=== PATIENT | female | born 1990 | race Hispanic/Latino ===

== ENCOUNTER 2025-06-10 00:47 | Emergency (ER) | payer BC ==
[~2025-06-10] VITALS: Ht 149.9 cm; Wt 65.8 kg
[2025-06-10 01:01] LABS: IMMATURE GRANULOCYTE ABSOLUTE 0.08 K/uL (0-1); NUCLEATED RED BLOOD CELLS 0.0 % (0.0-0.19); PLATELET COUNT (AUTO) 340 K/uL (130-400); RED BLOOD CELL COUNT(AUTO) 3.53 MIL/uL (4.00-5.50); RED CELL DISTRIBUTION WIDTH 13.5 % (11.0-15.5); WHITE BLOOD COUNT (AUTO) 8.1 K/uL (4.8-10.8)
[2025-06-10 01:08] LABS: CREATININE 0.7 mg/dL (0.5-1.0); GLOMERULAR FILTR. RATE CALC 116.0 mL/min (>90); GLUCOSE,RANDOM 101.0 mg/dL (70-105); SODIUM SERUM 134.0 mmol/L (136-145); UREA NITROGEN, BLOOD 13.0 mg/dL (7-18)
[2025-06-10] MEDS: FAMOTIDINE 20MG VIAL IV ONE (01:44)
[2025-06-10] MEDS: 0.9%NACL 1000ML 1,000 ML IV ONE (01:44)
--- NOTE | 2025-06-10 01:53 | HMCIMG ---
EXAM: US Obstetrical, Complete > 14 weeks CLINICAL HISTORY: HEART TONES TECHNIQUE: Transabdominal imaging of the maternal pelvis and a > 14 week gestation with image documentation. COMPARISON: None. FINDINGS: FETUS: There is a single living intrauterine gestation. POSITION: Breech presentation. Longitudinal lie. HEART RATE: The heart rate is 149 bpm. ANATOMIC SURVEY: The visualized anatomy is unremarkable. PLACENTA: The placenta is fundal right lateral. Grade 1 maturity of the placenta.. No demonstrated evidence of previa or abruption. AMNIOTIC FLUID: Within normal limits. The single largest pocket measures up to 4.2 cm. CERVIX: Severe cervical incompetence with possibly bulging membranes and a 2.6 x 1.1 cm fluid within the cervix. IMPRESSION: Single live intrauterine gestation. Severe cervical incompetence with possibly bulging membranes and a 2.6 x 1.1 cm fluid within the cervix. /[place]
--- NOTE | 2025-06-10 02:13 | ERN ---
ED Note History of Present Illness Stated Complaint: 24 WEEKS OB, VAGINAL BLEEDING Chief Complaint: Vaginal Bleeding Time Seen by MD: 00:50 Dictation: This is a 34-year-old female who presented to the emergency room with her complaining of vaginal bleeding. Patient is 24 weeks and apparently from [place] however locally came to visit family for the holidays. She stated that she had sinus symptoms and cough and she started having coughing spell after which she developed vaginal bleeding. No abdominal pain or back pain. No nausea vomitings diarrhea hematemesis or melena. No dysuria hematuria. She had a miscarriage in November of 2024 at which time she was also noted to have a cervical polyp. No fever chills or rigors. Temperature 98.2 pulse 101 respirations 18 blood pressure 139/88 with a pulse oximetry of 98% on room air Patient has good and care in [place] Allergies: Coded Allergies: No Known Drug Allergies (Unverified Allergy, Unknown, 06/10/25) Past Medical History Past Medical History: No Pertinent History, Other Additional Past Medical Hx: ENDOMETRIOSIS Surgical History: Family History: Negative Social History: Negative LMP: Dec 21, 2024 : 4 Para: 1 Aborts: 2 RN Note Reviewed/Agreed w/PFSH: Yes Review of System Dictation Constitutional: Negative for fever,chills, and weight loss Eyes: Negative for injury, pain,redness, and discharge ENT: Negative for injury,pain or swelling Cardiovascular: Negative for chest pain, palpitations, and edema Respiratory: Negative for shortness of breath, cough, and wheezing, Abdomen/GI: Negative for abdominal pain, nausea, vomiting, diarrhea, and constipation Back: Negative for injury and pain : Negative for injury, positive for vaginal bleeding positive for 24 weeks MS/Extremity: Negative for injury and deformity Skin: Negative for rash, and discoloration Neuro: Negative for headache, weakness, numbness, tingling, and seizure Psych: Negative for suicide ideation, homicidal ideation, and hallucinations Initial Vital Sign VS Vital Signs Date Time Temp Pulse Resp B/P (MAP) Pulse Ox O2 Delivery O2 Flow Rate FiO2 06/10/25 00:49 98.2 101 18 139/88 98 0 06/10/25 02:25 Room Air* 21 Physical Exam Dictation General: awake, alert, NAD appears generally anxious Head/Face: Normocephalic, atraumatic Eyes: PERRL, EOMI, vision at baseline ENT: oral cavity clear, TMs clear, no signs of infection Neck: Trachea midline, supple, no nuchal rigidity Cardiovascular: RRR, normal S1/S2, No MRGs, no JVD Respiratory: CTAB, no respiratory distress, No rales or wheezes Abdomen: Soft, non-tender, non-distended, normal bowel sounds, no guarding or rebound. Gravid uterus Skin: Warm, dry, normal turgor, no rash MS/Extremity: Pulses equal, no cyanosis, neurovascular intact, FROM Neuro: COAx4, GCS 15, strength 5/5, CN 2-12 intact, normal cerebellar exam, normal gait, Psych: Normal behavior, mood, and affect normal -mild amount of vaginal bleeding with clots Extremities-trace edema without any palpable cords, Homans sign is negative Results (Laboratory/Radiology) Laboratory/Radiology Laboratory Tests Test 06/10/25 00:53 06/10/25 02:22 White Blood Count 8.1 K/uL (4.8-10.8) Red Blood Count 3.53 MIL/uL (4.00-5.50) L Hemoglobin 10.2 g/dL (12.0-16.0) L Hematocrit 30.6 % (36-48) L Mean Corpuscular Volume 86.7 fL (79-99) Mean Corpuscular Hemoglobin 28.9 pg (27.0-33.0) Mean Corpuscular Hemoglobin Concent 33.3 g/dL (32.0-36.0) Red Cell Distribution Width 13.5 % (11.0-15.5) Platelet Count 340 K/uL (130-400) Mean Platelet Volume 9.8 fL (7.5-10.5) Immature Granulocyte % (Auto) 1.0 % (0-1) Neutrophils (%) (Auto) 66.8 % (40.0-77.0) Lymphocytes (%) (Auto) 24.1 % (21.0-51.0) Monocytes (%) (Auto) 6.5 % (3.0-13.0) Eosinophils (%) (Auto) 1.1 % (0.0-8.0) Basophils (%) (Auto) 0.5 % (0.0-5.0) Neutrophils # (Auto) 5.4 K/uL (1.8-7.7) Lymphocytes # (Auto) 1.9 K/uL (1.0-4.8) Monocytes # (Auto) 0.5 K/uL (0.1-1.0) Eosinophils # (Auto) 0.09 K/uL (0.00-0.70) Basophils # (Auto) 0.04 K/uL (0.00-0.20) Absolute Immature Granulocyte (auto 0.08 K/uL (0-1) Nucleated Red Blood Cells 0.0 % (0.0-0.19) Sodium Level 134 mmol/L (136-145) L Potassium Level 3.9 mmol/L (3.5-5.1) Chloride Level 99 mmol/L (101-111) L Carbon Dioxide Level 25 mmol/L (21-32) Blood Urea Nitrogen 13 mg/dL (7-18) Creatinine 0.7 mg/dL (0.5-1.0) Glomerular Filtration Rate Calc 116 mL/min (>90) Random Glucose 101 mg/dL (70-105) Total Calcium 9.1 mg/dL (8.5-10.1) Serum Test, Qualitative POSITIVE (NEGATIVE) H Urine Color BROWN (YELLOW) Urine Appearance CLOUDY (CLEAR) H Urine pH 6.5 (5.0-8.0) Urine Specific [place] 1.005 (1.001-1.031) Urine Protein 70 mg/dL (NEGATIVE) H Urine Glucose (UA) NEGATIVE mg/dL (NEGATIVE) Urine Ketones NEGATIVE mg/dL (NEGATIVE) Urine Occult Blood LARGE (NEGATIVE) H Urine Nitrate NEGATIVE (NEGATIVE) Urine Bilirubin NEGATIVE mg/dL (NEGATIVE) Urine Urobilinogen 0.2 mg/dL (0.2-1.0) Urine Leukocyte Esterase 25 April/uL (NEGATIVE) H Urine RBC TNTC /HPF (0-1) H Urine WBC 6-10 /HPF (0-1) H Urine Non-Squamous Epithelial Cells 6-10 /HPF (0-2) Urine Amorphous Crystals (Auto) Many /LPF (None Seen) H Urine Bacteria Moderate /HPF (None Seen) H Labs Reviewed?: Yes Ultrasound Comment: EXAM: US Obstetrical, Complete > 14 weeks CLINICAL HISTORY: HEART TONES TECHNIQUE: Transabdominal imaging of the maternal pelvis and a > 14 week gestation with image documentation. COMPARISON: None. FINDINGS: FETUS: There is a single living intrauterine gestation. POSITION: Breech presentation. Longitudinal lie. HEART RATE: The heart rate is 149 bpm. ANATOMIC SURVEY: The visualized anatomy is unremarkable. PLACENTA: The placenta is fundal right lateral. Grade 1 maturity of the placenta.. No demonstrated evidence of previa or abruption. AMNIOTIC FLUID: Within normal limits. The single largest pocket measures up to 4.2 cm. CERVIX: Severe cervical incompetence with possibly bulging membranes and a 2.6 x 1.1 cm fluid within the cervix. IMPRESSION: Single live intrauterine gestation. Severe cervical incompetence with possibly bulging membranes and a 2.6 x 1.1 cm fluid within the cervix. /[place] DICTATED BY: JOSI HENRY Jr., MD DATE: 06/10/25301 ELECTRONICALLY SIGNED BY: DATE: EXAM: US Obstetrical, Complete > 14 weeks CLINICAL HISTORY: HEART TONES TECHNIQUE: Transabdominal imaging of the maternal pelvis and a > 14 week gestation with image documentation. COMPARISON: None. FINDINGS: FETUS: There is a single living intrauterine gestation. POSITION: Breech presentation. Longitudinal lie. HEART RATE: The heart rate is 149 bpm. ANATOMIC SURVEY: The visualized anatomy is unremarkable. PLACENTA: The placenta is fundal right lateral. Grade 1 maturity of the placenta.. No demonstrated evidence of previa or abruption. AMNIOTIC FLUID: Within normal limits. The single largest pocket measures up to 4.2 cm. CERVIX: Severe cervical incompetence with possibly bulging membranes and a 2.6 x 1.1 cm fluid within the cervix. IMPRESSION: Single live intrauterine gestation. Severe cervical incompetence with possibly bulging membranes and a 2.6 x 1.1 cm fluid within the cervix. /[place] DICTATED BY: JOSI HENRY Jr., MD DATE: 06/10/25251 ELECTRONICALLY SIGNED BY: JOSI HENRY Jr., MD DATE: 06/10/25251 ED Course ED Course Orders Procedure Category Date Status Time Cbc With Differential LAB 06/10/25 Complete 00:50 Basic Metabolic Panel LAB 06/10/25 Complete 00:50 Testing, LAB 06/10/25 Complete Serum Hcg 00:50 Urinalysis Profile LAB 06/10/25 Complete 00:50 0.9%Nacl 1000ml (Ns PHA 06/10/25 Complete 1000ml) 01:00 Us Ob Sofía/Position US 06/10/25 Resulted Famotidine 20mg Vial PHA 06/10/25 Complete (Pepcid 20mg Vial) 01:30 Ondansetron 4mg Inj PHA 06/10/25 Complete (Zofran 4mg Inj) 01:30 Culture Urine JARAD 06/10/25 Complete 03:01 Ampicillin 2gm Vial PHA 06/10/25 Complete (Ampicillin 2gm Vial 02:30 Current Medications Medications (Trade) Dose Ordered Sig/Jonna Route PRN Reason Start Time Stop Time Status Last Admin Dose Admin Ampicillin Sodium (Ampicillin 2gm Vial) 2 gm ONCE ONCE IV 06/10/25 02:30 06/10/25 03:05 DC 06/10/25 03:25 Famotidine (Pepcid 20mg Vial) 20 mg ONCE ONCE IV 06/10/25 01:30 06/10/25 01:40 DC 06/10/25 01:44 Ondansetron HCl (zoFRAN 4MG INJ) 4 mg ONCE ONCE IVP 06/10/25 01:30 06/10/25 01:40 DC 06/10/25 01:44 Sodium Chloride 1,000 ml @ 0 mls/hr ONCE ONCE IV 06/10/25 01:00 06/10/25 01:40 DC 06/10/25 01:44 Vital Signs Date Time Temp Pulse Resp B/P (MAP) Pulse Ox O2 Delivery O2 Flow Rate FiO2 06/10/25 03:58 98.4 86 16 121/74 99 Room Air* 0 21 06/10/25 02:25 98.1 88 17 116/73 97 Room Air* 0 21 06/10/25 00:49 98.2 101 18 139/88 98 0 Medical Decision Making MDM Differential diagnosis: Vaginitis, labor, subchorionic hemorrhage, chorioamnionitis This is a 34-year-old female who presented to the emergency room with her complaining of vaginal bleeding. Patient is 24 weeks and apparently from [place] however locally came to visit family for the holidays. She stated that she had sinus symptoms and cough and she started having coughing spell after which she developed vaginal bleeding. No abdominal pain or back pain. No nausea vomitings diarrhea hematemesis or melena. No dysuria hematuria. She had a miscarriage in November of 2024 at which time she was also noted to have a cervical polyp. No fever chills or rigors. Temperature 98.2 pulse 101 respirations 18 blood pressure 139/88 with a pulse oximetry of 98% on room air Patient was initiated on gentle hydration and labs obtained CBC showed a white count of 8.2 hemoglobin 10.2, BNP 7 showed a sodium of 134 ch loride 99. Positive test. 2:15 a.m. Ob ultrasound was completed single live fetus was present with a heart rate of around 166. Cervical incompetence and insufficiency was noted with bulging membranes. I updated the patient and spouse on workup so far labs and the ultrasound findings and recommendations to transfer her to [facility] due to lack of availability of OBGYN services at this facility. They were agreeable. 2:37 a.m. I discussed with Dr. Alfonso Egan, OBGYN on-call at [facility] who graciously accepted the patient. I also gave an empiric ampicillin 2 g IV. Once arrangements for transportation are made patient will be transferred to [facility] to Dr. Egan's service Patient has good and care in [place] Rationale: Tests considered and ordered secondary to shared decision making inc lude: labs, ECG and radiology Previous outside records reviewed: Old ER visits. Risk of complication and/or morbidity or mortality of patient management: None Medications-Per medication reconciliation Need for hospitalization: Patient does meet criteria for hospitalization. Need for emergency major/minor surgery: No There are no social concerns with this patient. Prescription drug management Prescriptions will include symptomatic care Patient's prior external medical records from other ER visits were reviewed by me as indicated. Prior testing and results from previous visits were reviewed. Prior tests were taken into account with medical decision making and resource utilization, independent historian/historians were used to obtain complete medical history. I independently interpreted the test that were performed, results were reviewed by me and considered findings on radiology if ordered. Medical management and examination interpretation discussions were had by me with other qualified healthcare professionals as indicated for the patient's care. DX & DISP Disposition: Transfer Departure Impression: Primary Impression: Vaginal bleeding during , antepartum Additional Impressions: Second trimester , Threatened labor, antepartum Condition: Stable Additional Instructions: The patient has been informed about all the diagnostic tests and procedures carried out in the emergency room today and has confirmed understanding of the results. Patient will be transferred to a facility that provides a higher level of care since such services are not accessible locally or within our immediate community. The patient is alert oriented and not experiencing any acute distress. There are no signs of sepsis and patient's hemodynamic status is stable at the moment. Medically, the patient is considered stable for transfer Patient was accepted by Dr. Alfonso Egan at [facility] and transferred to that facility. KAEL ARREGUIN MD Jun 10, 2025 02:13
--- NOTE | 2025-06-10 02:30 | NUR ---
TRANSFER CALL PLACED TO [facility] [employer] TO INITIATE TRANSFER FOR OBSTETRIC SERVICES.
[2025-06-10 02:44] LABS: APPEARANCE,URINE CLOUDY (CLEAR); GLUCOSE, URINE (UA) NEGATIVE (NEGATIVE); LEUKOCYTE ESTERASE ,URINE 25 Leu/uL (NEGATIVE); NITRATE,URINE NEGATIVE (NEGATIVE); OCCULT BLOOD,URINE LARGE (NEGATIVE)
[2025-06-10 02:46] LABS: ADD UA MICROSCOPIC YES
[2025-06-10] MEDS: AMPICILLIN 2GM VIAL IV ONE (03:25)
--- NOTE | 2025-06-10 03:45 | NUR ---
TRANSFER PT. ACCEPTED @ 1580 BY CARLOS LOGAN MD FOR TRANSFER TO [facility] [place]. BED ASSIGNMENT AT THIS TIME: L & D ROOM: [id number]. REPORT: [id number]
--- NOTE | 2025-06-10 03:48 | NUR ---
[facility] CALLED FOR EMERGENT TRANSFER OF MONITORED PATIENT
[2025-06-10 03:58] VITALS: BP 121/74; PULSE 86; RESP 16; TEMP 98.4; O2SAT 99
== END 2025-06-10 04:19 | disposition short-term general hospital (02) ==
LOC: EDH 00:47
DX: O47.02 False labor before 37 completed weeks of gestation, second trimester (principal); O46.8X2 Other antepartum hemorrhage, second trimester; Z3A.24 24 weeks gestation of pregnancy; Z98.890 Other specified postprocedural states
CPT/HCPCS: 99285; 96374; 96375; 80048; 84703; 85025; 87086; 81001; 36415; 76815; J0290; J1308; J7030; J2405